=== PATIENT | female | born 1990 | race Caucasian/White ===

== ENCOUNTER 2016-10-17 09:25 | Outpatient (CLI) | payer MEDICAID | END 2016-10-17 09:26 | disposition home or self-care (01) | DX: N63 Unspecified lump in breast (principal) ==

== ENCOUNTER 2017-12-18 06:04 | Day surgery (SDC) | payer MEDICAID ==
[2017-12-18] MEDS ORDERED: metroNIDAZOLE 500 MG/100 ML 500 MG/100 ML BAG ONE (06:30)
[2017-12-18 06:36] LABS: BASOPHILS # (AUTO) 0.1 10^3/uL (0.0-0.1); BASOPHILS % (AUTO) 0.7 %; EOSINOPHILS # (AUTO) 0.2 10^3/uL (0.0-0.7); EOSINOPHILS % (AUTO) 2.9 %; HGB - HEMOGLOBIN 14.5 g/dL (12.0-16.0); LYMPHOCYTES # (AUTO) 1.3 10^3/uL (1.5-3.5); LYMPHOCYTES % (AUTO) 17.1 %; MEAN CORPUSCULAR HEMOGLOBIN 30.1 pg (27.0-31.0); MEAN CORPUSCULAR VOLUME 91.2 fL (81.0-99.0); MEAN PLATELET VOLUME 8.6 fL (7.9-10.8); MONOCYTES # (AUTO) 0.5 10^3/uL (0.0-1.0); MONOCYTES % (AUTO) 6.8 %; NEUTROPHILS # (AUTO) 5.5 10^3/uL (1.5-6.6); NEUTROPHILS % (AUTO) 72.5 %; PLT - PLATELET COUNT 185 10^3/uL (130-450); RED BLOOD COUNT 4.82 10^6/uL (4.20-5.40); RED CELL DISTRIBUTION WIDTH 13.5 % (12.0-15.0); WHITE BLOOD COUNT 7.6 x10^3/uL (4.8-10.8)
[2017-12-18 06:39] LABS: HCG UR QUAL NEGATIVE
[2017-12-18] MEDS ORDERED: LACTATED RINGERS 1,000 ML IV ONE (06:50)
[2017-12-18] MEDS ORDERED: DEXAMETHASONE 4 MG/ML VIAL IVP ONE (07:30)
[2017-12-18] MEDS ORDERED: ONDANSETRON 4 MG/2 ML VIAL IVP ONE (07:30)
[2017-12-18] MEDS ORDERED: HYDROmorphone 1 MG/ML SYRINGE IVP ONE (07:30)
[2017-12-18] MEDS ORDERED: LIDOCAINE-MPF 2% 5 ML VIAL IM ONE (07:30)
[2017-12-18] MEDS ORDERED: KETOROLAC 30 MG/ML VIAL IVP ONE (07:30)
[2017-12-18] MEDS ORDERED: MIDAZOLAM 2 MG/2 ML VIAL IVP ONE (07:30)
[2017-12-18] MEDS ORDERED: LIDOCAINE 1%-EPI 1:100000 20 ML MDV SUBQ ONE (08:07)
--- NOTE | 2017-12-18 09:21 | OPERATIVE REPORT ---
DATE OF SERVICE: 12/18/2017 Physician: Mandeep Nam MD PREOPERATIVE DIAGNOSIS: Persistent cervical dysplasia, moderate. POSTOPERATIVE DIAGNOSIS: Persistent cervical dysplasia, moderate. PROCEDURE: Loop electrosurgical excision procedure (LEEP). SURGEON: Mandeep Nam MD ENVIRONMENTAL CONSTRUCTION ENGINEER: Reza Damian CRNA ANESTHESIA: LMA FINDINGS: There were areas at 8 o'clock, which were nonstaining with Lugol's, as well as 4 o'clock. COMPLICATIONS: None. ESTIMATED BLOOD LOSS: Less than 5 mL. FINDINGS: At 8 o'clock, there was an area which was nonstaining with Lugol's which was flame in configuration. There was also an area at 4 o'clock, which did not stain well with the Lugol's. SPECIMENS TO PATHOLOGY: Biopsy from 8 o'clock, 4 o'clock, 8 o'clock to 4 o' clock, endocervical canal, as well as ECC. DESCRIPTION OF PROCEDURE: Following adequate anesthesia with LMA, the patient was placed in the dorsal lithotomy position in Juan stirrups with SCDs. She was then prepped and draped in the usual fashion. Timeout was performed in which all concerns were addressed, the patient was identified, and the procedure confirmed. At this point, a speculum was placed with the smoke evacuator. This was a nonconducting speculum. The cervix was well visualized at this time. The cervix was injected with 1% Xylocaine with epinephrine. In a radial fashion , the uterosacral ligaments were also injected with 1% Xylocaine with epinephrine. The cervical area was then stained with Lugol's solution; an area at 8 o'clock as well as 4 o' clock were noted to be nonstaining. A loop was then used to excise these 2 areas separately. The medial sides of both of these were continuous. Then, another specimen was obtained from the cervix from 8 o'clock to 4 o'clock. This excised the entire transition zone as well as the nonstaining areas. The endocervical canal was then excised and an ECC was performed. This area was then treated with cautery and then Monsel's. No further bleeding was noted at this time. The uterosacrals were injected with an additional 2 mL of 1% Xylocaine with epinephrine. The patient tolerated the procedure well and was taken to recovery in stable condition. TD: 12/18/2017 08:58 MTDNatalie
--- NOTE | 2017-12-18 09:29 | PREOP HISTORY & PHYSICAL ---
DATE OF SERVICE: 12/16/2017 Physician: Mandeep Nam MD ANTICIPATED FOR 12/18/2017 IDENTIFICATION: patient is a 27-year-old G3, P3, female whose last menstrual period was 24 November. CHIEF COMPLAINT: Persistent cervical dysplasia. HISTORY OF PRESENT ILLNESS: Patient started having abnormal Pap smears in 2008. She had been treated in the past with colposcopy with biopsy. She has also had a LEEP. She has had PETRA-2. Her most recent Pap smear showed a high-grade squamous intraepithelial lesion. At this particular point, patient would like to have a more definitive procedure to see if she cannot rid her cervix of her dysplasia. She does smoke, and she has been counseled that this should be ceased. Patient also suffers from some PTSD, as well as anxiety disorder. For this reason, the LEEP will not be done in the office and will be done in the OR. PAST MEDICAL HISTORY: Positive for anxiety as well as PTSD. PAST SURGICAL HISTORY: Tubal ligation. CURRENT MEDICATIONS: None. HABITS: Patient smokes 10 cigarettes per day, drinks alcohol only rarely, but does THC on a daily basis. SOCIAL HISTORY: Patient is currently going through a divorce. She lives with her children. 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 FAMILY HISTORY: Positive for an aunt with ovarian cancer, mother with COPD who smokes, and father has had some cardiovascular disease. REVIEW OF SYSTEMS: Patient states she is in good health otherwise. PHYSICAL EXAMINATION GENERAL: Well-developed, well-nourished white female. She is somewhat thin in her body habitus. Her BMI is 18.1. Blood pressure is 120/70. HEENT: Pupils equal, round. Extraocular muscles intact. Thyroid is not palpably enlarged. HEART: Regular rate and rhythm without murmurs. LUNGS: Lung reno are clear without rales or wheezes. ABDOMEN: Soft, nontender, without evidence of any organomegaly. She has evidence of a previous tubal ligation. PELVIC: Previously done, showed a cervix which has evidence of previous LEEP. Uterus is unremarkable. The adnexa are not palpably enlarged. IMPRESSION: A G3, P3, 27-year-old female who presents with persistent cervical dysplasia. PLAN: We will perform LEEP in the hospital with anesthetic available. Risks and benefits have been explained to the patient including those, but not limited to bleeding, infection, injury to pelvic organs, which include the uterus, tubes, ovaries, bowel, and bladder. She is aware of the potential for DVT with PE as well as postop adhesion, which could cause pain. TD: 12/17/2017 15:13 MTDD
[2017-12-18 09:38] VITALS: BP 111/64
== END 2017-12-18 06:05 | disposition home or self-care (01) ==
LOC: SDS 06:04
PROVIDERS: ATTEND Obstetrics & Gynecology
PROC: 0UBC7ZX Excision of Cervix, Via Natural or Artificial Opening, Diagnostic (ICD-10-PCS; principal; 2017-12-18 07:30)
DX: N87.1 Moderate cervical dysplasia (principal); F17.210 Nicotine dependence, cigarettes, uncomplicated; F41.9 Anxiety disorder, unspecified
CPT/HCPCS: 36415; 57522; 81025; 85025; J1170; J7120

== ENCOUNTER 2018-06-29 16:56 | Outpatient (CLI) | payer MEDICAID ==
--- NOTE | 2018-06-30 13:59 | Ultrasound Report ---
Reason: EXCESSIVE FREQUENT MENSTRUATION W/IRREGULAR CYCL Procedure Date: 06/29/2018 Accession Number: [id number] / [id number] Procedure: US - Pelvic w/Transvaginal CPT Code: FULL RESULT: EXAM: PELVIC ULTRASOUND EXAM DATE: 06/29/2018 05:05 PM. CLINICAL HISTORY: Excessive frequent menstruation with irregular cycle. COMPARISON: None. TECHNIQUE: Realtime transabdominal pelvic scan performed to identify the uterus and adnexa and as an overview of other pelvic structures, followed by transvaginal scan to provide greater detail of the uterus and adnexa, with static image documentation. FINDINGS: Uterus: 9.7 x 6.4 x 4.3 cm, volume 139.6 cc. Anteverted position. Normal overall size and echotexture. Masses: None. Endometrium: 10.9 mm. Normal. Cervix: Unremarkable. Right Ovary: 3.1 x 2.5 x 1.7 cm, volume 6.8 cc. Normal echotexture and blood flow. Multiple follicles with the largest measuring 1.1 cm. Left Ovary: 3.6 x 2.4 x 2.3 cm, volume 10.3 cc. Normal echotexture and blood flow. 1.4 x 1.4 x 1.6 cm complex left ovarian cyst with debris and mild peripheral flow. No mural nodules or thickened septations. Free Fluid: Small amount of free fluid. Other: None. IMPRESSION: 1. 1.6 cm mildly complex left ovarian cyst most compatible with a hemorrhagic cyst or corpus luteum. Otherwise, both ovaries and adnexa are normal. 2. No endometrial mass. 3. Normal uterine myometrium. RADIA
== END 2018-06-29 16:57 | disposition home or self-care (01) ==
LOC: DI 16:56
PROVIDERS: ATTEND Obstetrics & Gynecology
DX: N83.292 Other ovarian cyst, left side (principal)
CPT/HCPCS: 76830; 76856

== ENCOUNTER 2019-03-15 10:04 | Outpatient (CLI) | payer MEDICAID ==
[2019-03-15 11:09] LABS: BASOPHILS # (AUTO) 0.1 10^3/uL (0.0-0.1); BASOPHILS % (AUTO) 1.1 %; EOSINOPHILS # (AUTO) 0.1 10^3/uL (0.0-0.7); EOSINOPHILS % (AUTO) 0.7 %; HGB - HEMOGLOBIN 14.9 g/dL (12.0-16.0); LYMPHOCYTES # (AUTO) 1.8 10^3/uL (1.5-3.5); LYMPHOCYTES % (AUTO) 19.4 %; MEAN CORPUSCULAR HEMOGLOBIN 30.3 pg (27.0-31.0); MEAN CORPUSCULAR HGB CONC 33.4 g/dL (32.0-36.0); MEAN CORPUSCULAR VOLUME 90.6 fL (81.0-99.0); MEAN PLATELET VOLUME 8.5 fL (7.9-10.8); MONOCYTES # (AUTO) 0.8 10^3/uL (0.0-1.0); MONOCYTES % (AUTO) 8.4 %; NEUTROPHILS # (AUTO) 6.7 10^3/uL (1.5-6.6); NEUTROPHILS % (AUTO) 70.4 %; PLT - PLATELET COUNT 233 10^3/uL (130-450); RED BLOOD COUNT 4.92 10^6/uL (4.20-5.40); RED CELL DISTRIBUTION WIDTH 14.4 % (12.0-15.0); WHITE BLOOD COUNT 9.5 x10^3/uL (4.8-10.8)
[2019-03-15 11:21] LABS: HCG UR QUAL NEGATIVE
[2019-03-15 11:30] LABS: ALBUMIN 4.4 g/dL (3.2-5.5); ALBUMIN/GLOBULIN RATIO 1.2 (1.0-2.2); BILIRUBIN,TOTAL 0.6 mg/dL (0.2-1.0); CALCIUM 9.4 mg/dL (8.5-10.3); CREATININE 0.6 mg/dL (0.4-1.0)
== END 2019-03-15 10:05 | disposition home or self-care (01) ==
LOC: LAB 10:04
PROVIDERS: ATTEND Obstetrics & Gynecology
DX: Z01.818 Encounter for other preprocedural examination (principal); N94.6 Dysmenorrhea, unspecified; N92.0 Excessive and frequent menstruation with regular cycle; N87.1 Moderate cervical dysplasia
CPT/HCPCS: 36415; 80053; 81025; 85025; 86850; 86900; 86901

== ENCOUNTER 2019-03-16 06:13 | Day surgery (SDC) | payer MEDICAID ==
[2019-03-16] MEDS ORDERED: CEFAZOLIN SODIUM IN 0.9 % NACL 2 GM/100 ML BAG IV ONE (06:32)
[2019-03-16] MEDS ORDERED: LACTATED RINGERS 1,000 ML IV ONE ×2 (07:03→11:20)
--- NOTE | 2019-03-16 07:17 | ANESTHESIA ---
Pre-Anesthesia VS, & Labs - Diagnosis dysmenorrhea, menorrhagia, moderate cervical dysplasia - Procedure total laparoscopic vaginal hysterectomy Vital Signs: Temp Pulse Resp BP Pulse Ox 36.6 C 73 18 112/73 98 03/16/19 06:37 03/16/19 06:37 03/16/19 06:37 03/16/19 06:37 03/16/19 06:37 Height 5 ft 9 in Weight (kg) 54.5 kg Body Mass Index 16.7 - NPO >8 hours - Is Patient ?: No - Lab Results Lab results reviewed: Yes Home Medications and Allergies Home Medications: Ambulatory Orders No Known Home Medications 03/15/19 No Known Home Medications 03/15/19 Allergies/Adverse Reactions: Allergies Allergy/AdvReac Type Severity Reaction Status Date / Time codeine [Codeine] Allergy Itching Verified 09/22/16 09:08 fentanyl Allergy Rash Verified 03/15/19 10:26 Anes History & Medical History - Anesthetic History Anesthesia Complications: reports: No previous complications - Medical History Cardiovascular: reports: None Pulmonary: reports: Asthma, Other Gastrointestinal: reports: GERD, Ulcers Urinary: reports: Chronic bladder infection Musculoskeletal: reports: Other Endocrine/Autoimmune: reports: None Blood Disorders: reports: None Skin: reports: Eczema Smoking Status: Current every day smoker Psychosocial: reports: Other (PTSD) - Surgical History Gynecologic: Tubal ligation, LEEP (Cervical surgery) Exam General: Alert Dental: WNL Mallampati classification: I Respiratory: Lungs clear Cardiovascular: Regular rate, Normal S1, Normal S2 Plan Anesthesia Type: General Consent for Procedure(s) Verified and Reviewed: Yes Code Status: Attempt Resuscitation ASA classification: 2-Mild systemic disease Is this case an emergency?: No
[2019-03-16] MEDS ORDERED: POTASSIUM CHLOR 10 MEQ/100 ML 10 MEQ/100 ML BAG IV SCH (07:21)
[2019-03-16] MEDS ORDERED: BUPIVACAINE 0.25%-EPI 1:200000 PF 30 ML VIAL ONE ×2 (07:26→09:53)
[2019-03-16] MEDS ORDERED: LIDOCAINE-MPF 2% 5 ML VIAL IM ONE (08:27)
[2019-03-16] MEDS ORDERED: HYDROmorphone 1 MG/ML CARPUJECT IVP ONE (08:27)
[2019-03-16] MEDS ORDERED: PROPOFOL 200 MG/20 ML VIAL IVP ONE (08:27)
[2019-03-16] MEDS ORDERED: ACETAMINOPHEN 1,000 MG/100 ML 100 ML IV ONE (08:27)
[2019-03-16] MEDS ORDERED: ONDANSETRON 4 MG/2 ML VIAL IVP ONE (08:27)
[2019-03-16] MEDS ORDERED: DEXAMETHASONE 4 MG/ML VIAL IVP ONE (08:27)
[2019-03-16] MEDS ORDERED: ROCURONIUM 50 MG/5 ML VIAL IVP ONE (08:27)
[2019-03-16] MEDS ORDERED: KETOROLAC 30 MG/ML VIAL IVP ONE (08:27)
[2019-03-16] MEDS ORDERED: NEOSTIGMINE 1 MG/1 ML 10 ML MDV IVP ONE (08:27)
[2019-03-16] MEDS ORDERED: GLYCOPYRROLATE 1 MG/5 ML VIAL IVP ONE (08:27)
[2019-03-16] MEDS ORDERED: MIDAZOLAM 2 MG/2 ML VIAL IVP ONE (08:27)
[2019-03-16] MEDS ORDERED: BUPIVACAINE 0.25%-EPI 1:200000 PF 30 ML VIAL SUBQ ONE ×3 (08:51)
[2019-03-16] MEDS ORDERED: METHYLENE BLUE 0.5% 50 MG/10 ML AMPULE ONE (10:13)
[2019-03-16] MEDS ORDERED: oxyCODONE 5 MG TABLET PO PRN (10:23)
[2019-03-16] MEDS ORDERED: ONDANSETRON 4 MG/2 ML VIAL IVP PRN (10:23)
[2019-03-16] MEDS ORDERED: HYDROmorphone 0.5 MG/0.5 ML SYRINGE IVP PRN (10:23)
--- NOTE | 2019-03-16 10:29 | OPERATIVE REPORT ---
Operative Report - General Procedure Date: 03/16/19 Planned Procedure: TLH with BS and cysto Pre-Op Diagnosis: Menorrhagia, dysmennorrhea Procedure Performed: LAVH with BS Cysto Post Op Diagnosis: Same - Procedure Note Primary Surgeon: Mandeep Nam MD Secondary Surgeon: Amanuel Gaines DO Anesthesia Provider: Svetlana Vasquez CRNA Anesthesia Technique: General ET tube Pathology: Uterus with Tubes IV Fluids (mL): 800 Estimated Blood Loss (mL): 100 Urine Output (mL): 425 Findings: Enlarged uterus appendix adhered to the pelvic brim Sigmoid adhered to the left pelvic sidewall Complications: none
--- NOTE | 2019-03-16 11:26 | OPERATIVE REPORT ---
DATE OF SERVICE: 03/16/2019 Physician: Mandeep Nam MD PREOPERATIVE DIAGNOSES 1. Menorrhagia. 2. Dysmenorrhea. POSTOPERATIVE DIAGNOSES 1. Menorrhagia. 2. Dysmenorrhea. PROCEDURE: Laparoscopically-assisted vaginal hysterectomy with bilateral salpingectomy and cystoscopy. SURGEON: Mandeep Nam MD INTERNET CONSULTANT: Amanuel Gaines DO ANESTHESIA: Julia Vasquez CRNA, general via endotracheal tube. IV FLUIDS: 800 mL ESTIMATED BLOOD LOSS: 100 mL URINE OUTPUT: 250 mL FINDINGS: Upon entering the abdominal cavity, the tubes and ovaries showed evidence of previously having had tubal ligation. The uterus was globularly enlarged. The appendix was adhered to the right pelvic sidewall and the sigmoid colon and the left pelvic sidewall. The liver appeared to be normal. There was no evidence of any other pelvic disease. PROCEDURE IN DETAIL: Following adequate endotracheal anesthesia, the patient was placed in dorsal lithotomy position with Juan stirrups. At this point, she was prepped and draped in the usual fashion. A timeout was performed, during which concerns were addressed. The procedure was then commenced. A speculum was placed in the vagina. The cervix was visualized, grasped with a single-tooth tenaculum and sounded to 8 cm and then dilated to 8 mm. A large VCare manipulator was placed in the cervical os and placed up against the fornices. This was then packed utilizing a surgical glove with moist 4X4 to help maintain the pneumoperitoneum. Milk Vendor's gloves were changed at this point following local anesthesia with 0.25% Marcaine a stab wound was made in the subumbilical region with a #11 blade. The trocar and sheath were placed under direct visualization on a single pass. Both left and right lower quadrant trocars were placed following local anesthesia with 0.25% Marcaine with epinephrine and skin incision with a #11 blade. These were both placed under direct visualization. The pelvic contents were inspected with the aforementioned findings. At this point, the right fallopian tube was grasped, and then the LigaSure was used to transect the fallopian tube and mesosalpinx all the way up to the cornua of the uterus. There was evidence of previous tubal ligation in that tube. The round ligament was doubly cauterized and transected. The broad uteroovarian ligament was likewise doubly cauterized and transected. The broad ligament was cauterized, transected, and then opened, and the anterior portion of the broad ligament was opened and carried across the lower uterine segment to develop a bladder flap. The posterior leaf of the broad ligament was likewise cauterized and transected with the LigaSure all the way down to the internal os of the cervix. This was carried below this. Care was taken to try and incorporate the uterine vessels. The left-hand side was treated identically. The fallopian tube was grasped and the LigaSure was used to transect and cauterize the mesosalpinx all the way up to the cornua of the uterus. The round ligament was then doubly cauterized, transected, and the anterior leaf of the broad ligament was opened and carried down to the lateral aspect of the uterus on the left-hand side. This was carried all the way to and met with the peritoneal opening over the cervix. The posterior leaf of the broad ligament was likewise cauterized and transected with the LigaSure this to include the uterine vessels, specifically. Care was taken to visualize the ureter on the right-hand side and was noted to be free of the operative field. On the left hand side, the sigmoid colon was obscuring it. The transverse cervical ligament was cauterized and transected all the way to the cup and below the cup of the VCare. At this point, the areas were inspected. There was no bleeding noted. The anterior vagina was then opened utilizing the Harmonic scalpel and carried laterally under direct visualization. The cervix was amputated from the apex of the vagina. Good hemostasis was obtained utilizing the LigaSure. At this point, the uterus was brought down through the apex of the vagina and then out through the vagina. Attention was then changed to the perineum, and the apex of the vagina was grasped on either side utilizing long Kochers. Corner stitches were placed of 2-0 Vicryl. At this point, the uterosacral ligaments were injected with 0.25% Marcaine with epinephrine, 10 mL on both sides. Care was taken to aspirate following injection of every 2 mL to decrease the risk of any intravascular injections. A pursestring of 4-0 Monocryl was placed to include the peritoneum. At this point, the apex of the vagina was closed utilizing [id number] of 0 Vicryl. There was evidence of good closure. The laparoscope was reintroduced following changing gloves, and there was no evidence of any bleeding at all in the pelvic cavity. The pelvis was then irrigated and once again noted to be free of bleeding. At this point, a cystoscopy was performed, and there was evidence of good flow from both ureteral orifices, and there was no evidence of any injuries to the bladder itself. The incisions were closed using 4-0 Monocryl subcuticular and then Dermabond. The patient tolerated the procedure well and was taken to recovery in stable condition. Sponge and needle counts were correct. TD: 03/16/2019 10:50 MTDD
[2019-03-16] MEDS ORDERED: oxyCODONE 5 MG TABLET ONE (11:36)
[2019-03-16 12:08] VITALS: BP 94/66
== END 2019-03-16 06:14 | disposition home or self-care (01) ==
LOC: SDS 06:13
PROVIDERS: ATTEND Obstetrics & Gynecology
PROC: 0UT7FZZ Resection of Bilateral Fallopian Tubes, Via Natural or Artificial Opening With Percutaneous Endoscopic Assistance (ICD-10-PCS; 2019-03-16)
PROC: 0UT9FZZ Resection of Uterus, Via Natural or Artificial Opening With Percutaneous Endoscopic Assistance (ICD-10-PCS; principal; 2019-03-16 07:30)
DX: N94.6 Dysmenorrhea, unspecified (principal); N92.0 Excessive and frequent menstruation with regular cycle; Z87.410 Personal history of cervical dysplasia; N73.6 Female pelvic peritoneal adhesions (postinfective); J45.909 Unspecified asthma, uncomplicated; F17.210 Nicotine dependence, cigarettes, uncomplicated; K21.9 Gastro-esophageal reflux disease without esophagitis; F43.10 Post-traumatic stress disorder, unspecified
CPT/HCPCS: 58552; A9270; J0131; J0690; J1170; J7120

== ENCOUNTER 2019-04-06 12:45 | Outpatient (CLI) | payer SELFPAY ==
[2019-04-06 13:03] LABS: HGB - HEMOGLOBIN 15.1 g/dL (12.0-16.0); MEAN CORPUSCULAR HEMOGLOBIN 29.9 pg (27.0-31.0); MEAN CORPUSCULAR HGB CONC 33.3 g/dL (32.0-36.0); MEAN CORPUSCULAR VOLUME 89.9 fL (81.0-99.0); MEAN PLATELET VOLUME 9.9 fL (7.9-10.8); RED BLOOD COUNT 5.05 10^6/uL (4.20-5.40); RED CELL DISTRIBUTION WIDTH 13.1 % (12.0-15.0); WHITE BLOOD COUNT 13.7 x10^3/uL (4.8-10.8)
== END 2019-04-06 12:46 | disposition home or self-care (01) ==
LOC: LAB 12:45
PROVIDERS: ATTEND Obstetrics & Gynecology
DX: N93.9 Abnormal uterine and vaginal bleeding, unspecified (principal)
CPT/HCPCS: 36415; 85027

== ENCOUNTER 2020-02-14 11:46 | Outpatient (CLI) | payer SELFPAY | END 2020-02-14 23:59 | disposition home or self-care (01) | LOC: LAB.WCP 11:46 | PROVIDERS: ATTEND Obstetrics & Gynecology | DX: R10.2 Pelvic and perineal pain (principal) | CPT/HCPCS: 36415; 82670; 83001 ==

== ENCOUNTER 2021-01-19 14:43 | Emergency (ER) | payer SELFPAY ==
[2021-01-19] MEDS ORDERED: ONDANSETRON ODT 4 MG TABLET TL STA (15:06)
[2021-01-19] MEDS ORDERED: LORazepam 1 MG TABLET PO STA (15:06)
--- NOTE | 2021-01-19 15:09 | ED Physician Documentation ---
History of Present Illness - Stated complaint Stated Complaint: CP - Chief complaint Chief Complaint: General - Additonal information Additional information: 31-year-old female presents to the emergency department for evaluation of chest pain. Upon my arrival in the emergency department she reports to this provider that she is freaking out. She reports that she woke up this morning felt nauseated and then vomited. Shortly after vomiting she began developing chest pain. She says she has never had pain this bad. States that she has a history of anxiety and panic attacks but this feels different. Reports that fingers and toes are numb and tingly. She is crying and difficult to console Denies possibility of she has had a total hysterectomy. No recent travel immobilization or surgeries. No hormone use. No personal history of DVT or cancer Review of Systems Constitutional: denies: Fever, Chills Eyes: reports: Reviewed and negative Ears: reports: Reviewed and negative Nose: reports: Reviewed and negative Throat: reports: Reviewed and negative Cardiac: reports: Chest pain / pressure, Palpitations Respiratory: denies: Dyspnea, Cough GI: reports: Vomiting : denies: Dysuria, Frequency, Hesitancy Skin: reports: Reviewed and negative Musculoskeletal: reports: Reviewed and negative Neurologic: reports: Reviewed and negative Psychiatric: reports: Anxiety PD PAST MEDICAL HISTORY - Past Medical History Cardiovascular: None Respiratory: Asthma, Other Endocrine/Autoimmune: None GI: None 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 : None HEENT: None Psych: Anxiety Musculoskeletal: Chronic back pain Derm: Eczema - Past Surgical History Past Surgical History: Yes /WIRE FENCE ERECTOR: Tubal ligation, LEEP (Cervical surgery) - Present Medications Home Medications: Ambulatory Orders Medication Instructions Recorded Confirmed No Known Home Medications 03/15/19 03/15/19 - Allergies Allergies/Adverse Reactions: Allergies Allergy/AdvReac Type Severity Reaction Status Date / Time codeine [Codeine] Allergy Itching Verified 01/19/21 14:45 fentanyl Allergy Rash Verified 01/19/21 14:45 - Social History Does the pt smoke?: Yes Smoking Status: Current every day smoker Does the pt drink ETOH?: No Does the pt have substance abuse?: No - Immunizations Immunizations are current?: Yes - POLST Patient has POLST: No PD ED PE EXPANDED - General General: Alert, In distress, Other (anxious, crying) - Cardiac Cardiac: Regular Rate, Radial strong equal, Pedal strong equal, Cap refill < 2 sec. No: Murmur Present - Respiratory Respiratory: Clear to ausultation zoe. No: Distress, Labored - Abdomen Abdomen: Normal Bowel sounds. No: Tender to palpation - Derm Derm: Normal color, Warm and dry - Extremities Extremities: Normal. No: Deformity, Tenderness - Psych Psych: Tearful, Anxious Results - Vitals Vitals: Vital Signs - 24 hr 01/19/21 14:48 Temperature 36.1 C L Heart Rate 65 Respiratory 18 Rate Blood Pressure 114/79 O2 Saturation 100 Oxygen O2 Source Room air - EKG (time done) 1446 Rate: Rate (enter#) (69) Rhythm: NSR [place]: Normal Intervals: Normal PA, Prolonged QT QRS: Normal Ischemia: Normal ST segments Compare to prior EKG: Old EKG unavailable Computer interpretation: Agree with computer - Labs Labs: Laboratory Tests 01/19/21 15:49 Troponin I High Sens 2.5 - Rads (name of study) CXR Radiology: Final report received (No acute process.) PD MEDICAL DECISION MAKING - ED course Complexity details: reviewed results, re-evaluated patient, considered differential, d/w patient ED course: 31-year-old female presents to the emergency department with a chief complaint of chest pain tingling in her arms and legs and uncontrollable crying. Reports that she has had panic attacks before but this feels different. On presentation she was clearly in emotional distress. Therefore this provider to give her some Zofran and Ativan and reassessed her. Though the acute panic attack had worn away patient continued report that she had chest pain. There was no cough. It was not pleuritic. Screening EKG is nonischemic. However patient is very concerned that she could be having a heart attack therefore I will proceed to obtain a chest x-ray to rule out a focal opacity as well as a high-sensitivity troponin. Assuming both of these results will be negative she is stable for discharge home. She appreciated that we would provide her the reassurance. Pt is PERC negative. Doubt PE 1630: Patient is markedly improved following the Ativan. Chest x-ray high- sensitivity troponin and EKG are negative. Patient is reassured and will be discharged home. Departure - Departure Disposition: 01 Home, Self Care Clinical Impression: Panic attack Chest pain Qualifiers: Chest pain type: unspecified Qualified Code(s): R07.9 - Chest pain, unspecified Condition: Stable Record reviewed to determine appropriate education?: Yes Comments: Glo you were seen in the emergency department for chest pain. At the time that you arrived you were also having an anxiety attack. You were given a one- time dose of Ativan here which markedly improved your symptoms. You were however worried about your heart. Your screening EKG is normal. Your chest x- ray and the lab used to detect whether you are having a heart attack is normal.
--- NOTE | 2021-01-19 16:13 | XRAY Report ---
PROCEDURE: Chest 1 View X-Ray INDICATIONS: chest pain TECHNIQUE: 2 frontal views of the chest was acquired. COMPARISON: None FINDINGS: Surgical changes and devices: None. Lungs and pleura: No pleural effusions or pneumothorax. Lungs are clear. Mediastinum: Mediastinal contours appear normal. Heart size is normal. Bones and chest wall: No suspicious bony lesions. Overlying soft tissues appear unremarkable. IMPRESSION: No evidence of an acute cardiopulmonary abnormality. Reviewed by: Clarence Bradley DO on 01/19/2021 3:12 PM THOMAS Approved by: Clarence Bradley DO on 01/19/2021 3:12 PM THOMAS Station ID: [id number]
[2021-01-19 16:55] VITALS: BP 120/60
== END 2021-01-19 16:56 | disposition home or self-care (01) ==
LOC: ED 14:43
DX: F41.0 Panic disorder [episodic paroxysmal anxiety] (principal); R07.9 Chest pain, unspecified; R11.2 Nausea with vomiting, unspecified; F17.200 Nicotine dependence, unspecified, uncomplicated
CPT/HCPCS: 36415; 71045; 84484; 93005; 99284; J8499; Q0162